=== PATIENT | male | born 1985 | race Hispanic/Latino ===

== ENCOUNTER 2022-01-19 01:17 | Emergency (ER) | payer BC ==
[~2022-01-19] VITALS: Ht 170.2 cm; Wt 114.3 kg
[2022-01-19 01:44] LABS: BASOPHILS % (AUTO) 0.6 % (0.0-5.0); EOSINOPHILS % (AUTO) 5.5 % (0.0-8.0); HEMATOCRIT 42.8 % (42-54); MEAN CORPUSCULAR HEMOGLOBIN 29.3 pg (27.0-33.0); MEAN CORPUSCULAR HGB CONC 33.9 g/dL (32.0-36.0); MEAN CORPUSCULAR VOLUME 86.5 fL (79-99); MONOCYTES % (AUTO) 7.4 % (3.0-13.0); NEUTROPHILS % (AUTO) 59.2 % (40.0-77.0); PLATELET COUNT (AUTO) 244 K/uL (130-400); RED BLOOD CELL COUNT(AUTO) 4.95 MIL/uL (4.50-6.20); RED CELL DISTRIBUTION WIDTH 13.4 % (11.0-15.5); WHITE BLOOD COUNT (AUTO) 9.3 K/uL (4.8-10.8)
[2022-01-19 01:58] LABS: CREATININE 0.8 mg/dL (0.5-1.5); POTASSIUM 3.4 mmol/L (3.5-5.1)
[2022-01-19 02:02] LABS: ALBUMIN 3.5 g/dL (3.5-5.0); TOTAL PROTEIN, SERUM 7.5 g/dL (6.0-8.3)
[2022-01-19 02:55] VITALS: BP 118/73
[2022-01-19] MEDS ORDERED: KETOROLAC 30MG VIAL (30MG/ML) IVP ONE (03:00)
== END 2022-01-19 03:30 | disposition home or self-care (01) ==
LOC: EDH 01:17
DX: R07.89 Other chest pain (principal); Z79.1 Long term (current) use of non-steroidal anti-inflammatories (NSAID)
CPT/HCPCS: 99284; 96374; 76705; 71045; 84484; 80053; 83880; 85025; 85378; 36415; 93005; J1885

== ENCOUNTER 2022-08-15 02:14 | Observation (INO) | payer BC ==
[~2022-08-15] VITALS: Ht 170.2 cm; Wt 106.1 kg
[2022-08-15 02:28] LABS: BASOPHILS % (AUTO) 0.6 % (0.0-5.0); EOSINOPHILS % (AUTO) 7.1 % (0.0-8.0); HEMATOCRIT 44.7 % (42-54); MEAN CORPUSCULAR HEMOGLOBIN 29.5 pg (27.0-33.0); MEAN CORPUSCULAR HGB CONC 33.1 g/dL (32.0-36.0); MONOCYTES % (AUTO) 7.3 % (3.0-13.0); NEUTROPHILS % (AUTO) 58.6 % (40.0-77.0); PLATELET COUNT (AUTO) 244 K/uL (130-400); RED BLOOD CELL COUNT(AUTO) 5.02 MIL/uL (4.50-6.20); RED CELL DISTRIBUTION WIDTH 13.2 % (11.0-15.5); WHITE BLOOD COUNT (AUTO) 7.9 K/uL (4.8-10.8)
[2022-08-15 02:36] LABS: CREATININE 0.8 mg/dL (0.5-1.5); POTASSIUM 3.4 mmol/L (3.5-5.1)
[2022-08-15 02:41] LABS: ALBUMIN 3.6 g/dL (3.5-5.0); TOTAL PROTEIN, SERUM 7.4 g/dL (6.0-8.3)
[2022-08-15 02:42] LABS: APPEARANCE,URINE CLEAR (CLEAR); BILIRUBIN,URINE NEGATIVE (NEGATIVE); COLOR,URINE LIGHT-YELLOW (YELLOW); GLUCOSE, URINE (UA) NEGATIVE (NEGATIVE); KETONES,URINE NEGATIVE (NEGATIVE); LEUKOCYTE ESTERASE ,URINE NEGATIVE Leu/uL (NEGATIVE); NITRATE,URINE NEGATIVE (NEGATIVE); OCCULT BLOOD,URINE NEGATIVE (NEGATIVE); PH,URINE 5.5 (5.0-8.0); PROTEIN,URINE NEGATIVE (NEGATIVE); UROBILINOGEN,URINE 0.2 mg/dL (0.2-1.0)
[2022-08-15] MEDS ORDERED: ACETAMINOPHEN 325 MG TAB PO PRN ×2 (05:00)
[2022-08-15] MEDS ORDERED: KCL 20 MEQ ERTAB PO ONE (05:00)
[2022-08-15] MEDS ORDERED: NITROGLYCERIN 0.4 MG SL TAB SL PRN (05:00)
[2022-08-15] MEDS ORDERED: ONDANSETRON 4MG INJ IV PRN (05:00)
[2022-08-15 05:02] LABS: AMPHET/METH SCREEN,URINE NEGATIVE (NEGATIVE); BARBITURATE SCREEN, URINE NEGATIVE (NEGATIVE); BENZODIAZEPINES SCREEN,URINE NEGATIVE (NEGATIVE); CANNABINOID SCREEN,URINE NEGATIVE (NEGATIVE); COCAINE SCREEN,URINE NEGATIVE (NEGATIVE); OPIATE SCREEN,URINE NEGATIVE (NEGATIVE); PHENCYCLIDINE SCREEN,URINE NEGATIVE (NEGATIVE)
[2022-08-15 05:20] LABS: HEMOGLOBIN A1C 5.2 % (4.0-6.0)
[2022-08-15] MEDS ORDERED: KCL 20 MEQ ERTAB PO PRN (05:30)
[2022-08-15] MEDS ORDERED: MAGNESIUM 2GM PREMIX 50ML 50 ML IV PRN (05:30)
[2022-08-15] MEDS ORDERED: POTASSIUM CHLORIDE 10% ELIXIR 20 MEQ/15 ML UDCUP PO PRN (05:30)
[2022-08-15] MEDS ORDERED: POTASSIUM CHLORIDE 20MEQ/100ML 100 ML IV PRN (05:30)
[2022-08-15] MEDS ORDERED: HYDROCODONE/ACETAMINOPHEN 5/325 MG TAB PO PRN (05:30)
[2022-08-15 07:42] LABS: CHOLESTEROL 181 mg/dL (<200); CREATINE KINASE, TOTAL 94 U/L (21-232); HDL CHOLESTEROL 41 mg/dL (29-71); LDL DIRECT 130 mg/dL (0-99); MYOGLOBIN 33 ng/mL (10-92); TRIGLYCERIDES 95 mg/dL (30-200)
[2022-08-15] MEDS: ASPIRIN 81 MG EC TAB PO SCH (07:46)
[2022-08-15] MEDS: FAMOTIDINE 20MG TAB PO SCH ×2 (07:46→19:52)
[2022-08-15] MEDS: ENOXAPARIN SODIUM 40 MG/0.4 ML SYRINGE SQ SCH (07:46)
[2022-08-15] MEDS: METOPROLOL TARTRATE 25 MG TAB PO SCH ×2 (07:58→19:52)
[2022-08-15 15:20] VITALS: BP 113/67
[2022-08-15 20:08] VITALS: BP 109/61
[2022-08-15] MEDS ORDERED: OMEP40CA21 PO (23:16)
[2022-08-15 23:43] VITALS: BP 121/76
[2022-08-16 04:00] VITALS: BP 105/51
[2022-08-16 05:32] LABS: HEMATOCRIT 43.9 % (42-54); MEAN CORPUSCULAR HEMOGLOBIN 29.8 pg (27.0-33.0); MEAN CORPUSCULAR VOLUME 90.3 fL (79-99); RED BLOOD CELL COUNT(AUTO) 4.86 MIL/uL (4.50-6.20); RED CELL DISTRIBUTION WIDTH 13.2 % (11.0-15.5); WHITE BLOOD COUNT (AUTO) 8.9 K/uL (4.8-10.8)
[2022-08-16 06:10] LABS: ALBUMIN 3.2 g/dL (3.5-5.0); POTASSIUM 4.2 mmol/L (3.5-5.1); TOTAL PROTEIN, SERUM 6.8 g/dL (6.0-8.3)
[2022-08-16 08:00] VITALS: BP 117/77
[2022-08-16] MEDS: FAMOTIDINE 20MG TAB PO SCH (09:43)
[2022-08-16] MEDS: ASPIRIN 81 MG EC TAB PO SCH (09:43)
[2022-08-16] MEDS: ENOXAPARIN SODIUM 40 MG/0.4 ML SYRINGE SQ SCH (09:44)
[2022-08-16] MEDS ORDERED: NAPR220C15 PO (11:35)
[2022-08-16] MEDS ORDERED: NAPR220T57 PO (11:35)
[2022-08-16 11:44] VITALS: BP 111/67
[2022-08-16] MEDS ORDERED: IOHEXOL-350 75 ML VIAL IV ONE (12:41)
== END 2022-08-16 17:20 | disposition home or self-care (01) ==
LOC: EDH 02:14 → EDHIP 04:51 → 3CH 15:11
PROVIDERS: ADMIT Internal Medicine; ATTEND Internal Medicine
DX: R07.89 Other chest pain (principal); E87.6 Hypokalemia; E66.9 Obesity, unspecified; K21.9 Gastro-esophageal reflux disease without esophagitis; E78.5 Hyperlipidemia, unspecified; Z68.38 Body mass index [BMI] 38.0-38.9, adult; Z79.899 Other long term (current) drug therapy
CPT/HCPCS: 96372 ×2; 96365; 96366; 99285; 83036; 82550 ×2; 83735 ×2; 83874 ×2; 84484 ×3; 80061; 80053 ×2; 80305; 85025; 82948; 81003; 36415 ×2; 71045; 93306; 93005 ×2; 85027; 71270; G0378 ×35; J3475; J1650 ×2; Q9967

== ENCOUNTER 2024-03-15 23:25 | Emergency (ER) | payer BC ==
[~2024-03-15] VITALS: Ht 167.6 cm; Wt 105.2 kg
[~2024-03-15 23:25] MED LIST: NAPR220C15 PO; NAPR220T57 PO; OMEP40CA21 PO
[2024-03-15 23:27] VITALS: TEMP 98.4
--- NOTE | 2024-03-15 23:30 | EKG ---
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
--- NOTE | 2024-03-15 23:31 | NUR ---
UA CUP PROVIDED
[2024-03-16 00:03] LABS: BASOPHILS # (AUTO) 0.06 K/uL (0.00-0.20); BASOPHILS % (AUTO) 0.7 % (0.0-5.0); EOSINOPHILS # (AUTO) 0.21 K/uL (0.00-0.70); EOSINOPHILS % (AUTO) 2.3 % (0.0-8.0); HEMATOCRIT 42.6 % (42-54); IMMATURE GRANULOCYTE ABSOLUTE 0.05 K/uL (0-1); LYMPHOCYTES % (AUTO) 22.1 % (21.0-51.0); MEAN CORPUSCULAR HEMOGLOBIN 29.7 pg (27.0-33.0); MEAN CORPUSCULAR HGB CONC 33.8 g/dL (32.0-36.0); MEAN CORPUSCULAR VOLUME 87.8 fL (79-99); MONOCYTES # (AUTO) 0.7 K/uL (0.1-1.0); MONOCYTES % (AUTO) 7.4 % (3.0-13.0); NEUTROPHILS # (AUTO) 6.2 K/uL (1.8-7.7); PLATELET COUNT (AUTO) 258 K/uL (130-400); RED BLOOD CELL COUNT(AUTO) 4.85 MIL/uL (4.50-6.20); RED CELL DISTRIBUTION WIDTH 12.9 % (11.0-15.5); WHITE BLOOD COUNT (AUTO) 9.2 K/uL (4.8-10.8)
[2024-03-16 00:11] LABS: APPEARANCE,URINE TURBID (CLEAR); BILIRUBIN,URINE NEGATIVE (NEGATIVE); COLOR,URINE LIGHT-YELLOW (YELLOW); CREATININE 0.9 mg/dL (0.5-1.3); GLUCOSE, URINE (UA) NEGATIVE (NEGATIVE); KETONES,URINE NEGATIVE (NEGATIVE); LEUKOCYTE ESTERASE ,URINE NEGATIVE Leu/uL (NEGATIVE); NITRATE,URINE NEGATIVE (NEGATIVE); OCCULT BLOOD,URINE NEGATIVE (NEGATIVE); POTASSIUM 3.4 mmol/L (3.5-5.1); PROTEIN,URINE 10 mg/dL (NEGATIVE); UROBILINOGEN,URINE 0.2 mg/dL (0.2-1.0)
[2024-03-16 00:12] LABS: ADD UA MICROSCOPIC YES
[2024-03-16 00:17] LABS: MUCUS,URINE RARE LPF (None Seen); RBC,URINE 0-1 /HPF (0-1); WBC,URINE 0-1 /HPF (0-1)
--- NOTE | 2024-03-16 00:18 | NUR ---
PT SITTING WITH FAMILY IN LOBBY. NO ACUTE DISTRESS NOTED. GOOD EVEN CHEST RISE AND FALL. AMBULATED IN LOBBY WITH NO ISSUES. GAIT WNL,
[2024-03-16 00:27] LABS: B-TYPE NATRIURETIC PEPTIDE < 5 pg/mL (0-100)
--- NOTE | 2024-03-16 00:48 | ERN ---
General Chief Complaint: Multiple Complaints Stated Complaint: CHEST PAIN, HIGH BP Time Seen by MD: 23:28 Source: patient History of Present Illness Initial Comments Patient is a 38-year-old male coming in to be evaluated for multiple complaints. Per patient he has been having left-sided shoulder pain a radiates to his chest region for about two weeks. Along with this he states that he has been having anxiousness. 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 Beyond with a his he has been having facial discomfort and nasal discomfort aswell Allergies: Coded Allergies: No Known Drug Allergies (Unverified Allergy, Unknown, 01/19/22) Home Meds Active Scripts Naproxen Sodium (Aleve) 220 Mg Tablet, 220 MG PO BID, #14 TAB 0 Refills Prov:YOUNG WEBB 08/16/22 Naproxen Sodium (Aleve) 220 Mg Capsule, 440 MG PO BID, #4 CAP 0 Refills Prov:YOUNG WEBB 08/16/22 Reported Medications Omeprazole (Omeprazole) 40 Mg Capsule.dr, 40 MG PO AM for 30 Days, CAP 08/15/22 Past Medical History Past Medical History: No Pertinent History Past Surgical History: Other Surgical History Other: NECK Family History Family History: DM, HTN Social History Social History: ETOH, Lives with family ROS Dictation CONSTITUTIONAL: No chills, no fever, no weakness, no diaphoresis, no malaise. HEAD/FACE: No signs of trauma. EENT: No eye pain, no blurred vision, no tearing, no double vision, no ear pain, no ear discharge, no nose pain, no nasal congestion, no throat pain, no throat swelling, no mouth pain. RESPIRATORY: No cough, no orthopnea, no SOB, no stridor, no wheezing. CARDIOVASCULAR: chest pain, no edema, no palpitations, no syncope. GASTROINTESTINAL/ABDOMINAL: No abdominal pain, no constipation, no diarrhea, no nausea, no vomiting. GENITOURINARY: No abnormal discharge, no dysuria, no frequent urination, no hematuria. No complaints of pain in the genitals. MUSCULOSKELETAL: No back pain, no gout, no joint pain, no joint swelling, muscle pain, no muscle stiffness, no neck pain. INTEGUMENTARY: No change in color, no change in hair/nails, no dryness, no lesion, no lumps, no rash. NEUROLOGICAL/PSYCH: No anxiety, not depressed, no emotional problem, no headache, no numbness, no pre-existing deficit, no history of seizures, no tremors, no weakness. HEMATOLOGIC/LYMPHATIC: Not anemic, no history of blood clots, no apparent bleeding, no bruising, glands not swollen. All Systems Negative, Except as Noted. Physical Exam Physical Exam Dictation VITAL SIGNS: Reviewed. GENERAL APPEARANCE: Alert, oriented x3, no acute distress, obese. HEAD AND FACE: Non-traumatic. EYES: PERRL, pink conjunctivas, eyelid no trauma, anterior chamber clear. EARS: Pinnas intact and no signs of trauma or erythema. Ear canals clear and no discharge. TMs no erythema. NOSE: No discharge, no bleeding. OROPHARYNX: Mouth normal, teeth no caries, tongue pink. Pharynx clear, no erythema. Tonsils no exudates, no abscesses noted. Mucous membrane moist. NECK: Supple, non-tender, no thyromegaly, no masses, no JVD, no bruits. BREAST: Deferred. CHEST: No tenderness, no crepitus, no paradoxical movement, no retractions. LUNGS: Clear, well-ventilated, symmetric, no rales, no wheezing, no rhonchi, no stridor, good breath sounds bilaterally. HEART: Regular rate, regular rhythm, no murmur, no gallops. VASCULAR: No peripheral edema. ABDOMEN: Soft, positive bowel sounds, nondistended, no guarding, nontender, no rebound, no masses no hepatomegaly, no splenomegaly, no Reed's sign, no hernias. RECTAL: Deferred. GENITAL: Deferred. NEUROLOGICAL: Normal speech, gross motor function intact, gross sensory function intact. MUSCULOSKELETAL: Neck nontender, full range of motion, back nontender, full range of motion. EXTREMITIES: Nontender, full range of motion. SKIN: Color pink, dry, no turgor, no rash, no lacerations, no abrasions, no contusions. LYMPHATICS: Deferred. Results Laboratory and Microbiology Lab and Micro Result Laboratory Tests Test 03/15/24 23:50 03/16/24 00:25 White Blood Count 9.2 K/uL (4.8-10.8) Red Blood Count 4.85 MIL/uL (4.50-6.20) Hemoglobin 14.4 g/dL (14.0-18.0) Hematocrit 42.6 % (42-54) Mean Corpuscular Volume 87.8 fL (79-99) Mean Corpuscular Hemoglobin 29.7 pg (27.0-33.0) Mean Corpuscular Hemoglobin Concent 33.8 g/dL (32.0-36.0) Red Cell Distribution Width 12.9 % (11.0-15.5) Platelet Count 258 K/uL (130-400) Mean Platelet Volume 10.9 fL (7.5-10.5) H Immature Granulocyte % (Auto) 0.5 % (0-1) Neutrophils (%) (Auto) 67.0 % (40.0-77.0) Lymphocytes (%) (Auto) 22.1 % (21.0-51.0) Monocytes (%) (Auto) 7.4 % (3.0-13.0) Eosinophils (%) (Auto) 2.3 % (0.0-8.0) Basophils (%) (Auto) 0.7 % (0.0-5.0) Neutrophils # (Auto) 6.2 K/uL (1.8-7.7) Lymphocytes # (Auto) 2.0 K/uL (1.0-4.8) Monocytes # (Auto) 0.7 K/uL (0.1-1.0) Eosinophils # (Auto) 0.21 K/uL (0.00-0.70) Basophils # (Auto) 0.06 K/uL (0.00-0.20) Absolute Immature Granulocyte (auto 0.05 K/uL (0-1) Nucleated Red Blood Cells 0.0 % (0.0-0.19) Urine Color LIGHT-YELLOW (YELLOW) Urine Appearance TURBID (CLEAR) Urine pH 8.0 (5.0-8.0) Urine Specific [place] 1.018 (1.001-1.031) Urine Protein 10 mg/dL (NEGATIVE) H Urine Glucose (UA) NEGATIVE mg/dL (NEGATIVE) Urine Ketones NEGATIVE mg/dL (NEGATIVE) Urine Occult Blood NEGATIVE (NEGATIVE) Urine Nitrate NEGATIVE (NEGATIVE) Urine Bilirubin NEGATIVE mg/dL (NEGATIVE) Urine Urobilinogen 0.2 mg/dL (0.2-1.0) Urine Leukocyte Esterase NEGATIVE [place]/uL Urine RBC 0-1 /HPF (0-1) Urine WBC 0-1 /HPF (0-1) Urine Amorphous Crystals (Auto) RARE /LPF (None Seen) Urine Bacteria None /HPF (None Seen) Sodium Level 136 mmol/L (136-145) Potassium Level 3.4 mmol/L (3.5-5.1) L Chloride Level 98 mmol/L (101-111) L Carbon Dioxide Level 31 mmol/L (21-32) Blood Urea Nitrogen 9 mg/dL (7-18) Creatinine 0.9 mg/dL (0.5-1.3) Glomerular Filtration Rate Calc 111 mL/min (>90) Random Glucose 119 mg/dL (70-105) H Total Calcium 8.7 mg/dL (8.5-10.1) Total Creatine Kinase 341 U/L (21-232) #H Troponin I High Sensitivity < 4 ng/L (4-75) L B-Type Natriuretic Peptide < 5 pg/mL (0-100) Troponin I < 0.05 ng/mL (0.00-0.05) Labs Reviewed?: Yes EKG/XRAY/US/CT/MRI EKG Comment 03/15/2024 time 11:27 p.m. Ventricular rate 76 Sinus rhythm [place] [address] wave elevation or depression X-RAY Comment CHEST X-RAY-[facility] MDM: Differential diagnosis: Sinusitis, anxiety, history of Santos's palsy PATIENT IS A 38-YEAR-OLD MALE COMING IN TO BE EVALUATED FOR MULTIPLE COMPLAINTS. 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 LABORATORY WORKUP NEGATIVE FOR ACUTE FINDINGS ON PHYSICAL EXAM PATIENT DID PRESENT WITH LEFT TYMPANIC MEMBRANE ERYTHEMA NASAL TURBINATE SWELLING RIGHT FACIAL DISCOMFORT RIGHT CERUMEN IMPACTION. PATIENT WAS DISCHARGED WITH A DIAGNOSIS OF SINUSITIS WITH RIGHT CERUMEN IMPACTION WELL ANXIETY. ED Course Orders Procedure Category Date Status Time Vital Signs Per CPOE 03/15/24 Transmitted Routine 23:27 B-Type Natriuretic LAB 03/15/24 Complete Peptide 23:27 Chest 1vw RAD 03/15/24 Taken 23:27 12 Lead Ekg Tracing- EKG 03/15/24 Complete Technical 23:27 Oxygen By Nc/Pulse Ox CPOE 03/15/24 Transmitted 23:27 Maintain Iv CPOE 03/15/24 Transmitted 23:27 Iv Insertion CPOE 03/15/24 Transmitted 23:27 Cardiac Monitoring CPOE 03/15/24 Transmitted 23:27 Pulse Oximetry With CPOE 03/15/24 Transmitted Vs And Prn 23:27 Cbc With Differential LAB 03/15/24 Complete 23:27 Activity: Br W/Brp CPOE 03/15/24 Transmitted With Assist 23:27 Creatine Kinase, Total LAB 03/15/24 Complete 23:27 Troponin I High LAB 03/15/24 Complete Sensitivity 23:27 Urinalysis Profile LAB 03/15/24 Complete 23:27 Troponin Poc Order LAB 03/15/24 Complete Only 23:27 Bedside Troponin-I LAB.ER 03/15/24 In Process (Poc) 23:27 Basic Metabolic Panel LAB 03/15/24 Complete 23:27 0.9%Nacl 1000ml (Ns PHA 03/16/24 Complete 1000ml) 01:00 Current Medications Medications (Trade) Dose Ordered Sig/Cielo Route PRN Reason Start Time Stop Time Status Last Admin Dose Admin Sodium Chloride 1,000 ml @ 0 mls/hr ONCE ONCE IV 03/16/24 01:00 03/16/24 01:01 DC 03/16/24 02:18 Vital Signs Date Time Temp Pulse Resp B/P (MAP) Pulse Ox O2 Delivery O2 Flow Rate FiO2 03/16/24 02:06 69 21 131/81 98 Room Air* 0 21 03/15/24 23:27 98.4 80 16 157/106 98 Room Air DX & DISP Disposition: Discharge Departure Impression: Primary Impression: Sinusitis Additional Impressions: Cerumen impaction, Anxiety Condition: Stable Scripts Isopropyl Alcohol in Glycerin (Debrox Swimmer's Ear Drop) 95 %-5 % Drops 30 ML OT BID for 7 Days, #4 DROP Prov: ROC GODWIN MD 03/16/24 Loratadine (Loratadine) 10 Mg Tablet 1 TAB PO DAILY for allergy symptoms for 30 Days, #30 TAB 0 Refills Prov: ROC GODWIN MD 03/16/24 Fluticasone Propionate (Flonase Nasal [place]) 50 Mcg/Actuation [place] 2 SPRAY NS DAILY, #16 GM 0 Refills Prov: ROC GODWIN MD 03/16/24 Amoxicillin/Potassium Clav (Amox Tr-K Clv 875-125 mg Tab) 875 Mg-125 Mg Tablet 1 TAB PO BID for 10 Days, #20 TAB 0 Refills Prov: ROC GODWIN MD 03/16/24 Additional Instructions: FOLLOW-UP WITH PRIMARY CARE PROVIDER IN 1 TO 2 DAYS. TAKE MEDICATIONS DIRE CTED HERE IN THE EMERGENCY ROOM. OKAY TO CONTINUE HOME MEDICATIONS UNLESS OTHERWISE DISCUSSED DURING YOUR VISIT IN THE EMERGENCY ROOM TODAY. RETURN TO YOUR NEAREST EMERGENCY ROOM IF SYMPTOMS WORSEN OR IF THERE IS NO IMPROVEMENT. CALL 911 IF YOU NEED IMMEDIATE ASSISTANCE. TAKE TYLENOL [id number] NEEDED AND IF NO CONTRAINDICATIONS ARE PRESENT. INCREASE ORAL HYDRATION. A WOUND CULTURE OR URINE CULTURE WAS ORDERED HERE IN THE EMERGENCY ROOM DEPARTMENT PLEASE FOLLOW-UP WITH PRIMARY CARE PROVIDER AND ADVISE THEM TO GET REPEAT PORTS FROM OUR FACILITY. IF YOU HAD ANY JAMAAL WRAP/SPLINTS THAT WERE APPLIED HERE, PLEASE DO NOT REMOVE THEM UNTIL YOU SEE YOUR PRIMARY CARE OR SPECIALTY. REFERRALS: Referrals: [facility] (PCP) KAIDEN DELEON MD Time of Disposition: 02:36 ROC GODWIN MD Mar 16, 2024 00:48
--- NOTE | 2024-03-16 02:05 | NUR ---
PT CARE ASSUMED AT THIS TIME
[2024-03-16] MEDS: 0.9%NACL 1000ML 1,000 ML IV ONE (02:18)
[2024-03-16] MEDS ORDERED: FLUT16H NS (02:39)
[2024-03-16] MEDS ORDERED: LORA10TA7 PO (02:39)
[2024-03-16] MEDS ORDERED: ISOP30DR11 OT (02:39)
[2024-03-16] MEDS ORDERED: AMOX1TAB16 PO (02:39)
[2024-03-16 03:50] VITALS: BP 127/87; PULSE 66; RESP 19; O2SAT 96
--- NOTE | 2024-03-16 08:12 | HMCIMG ---
PORTABLE CHEST RADIOGRAPH INDICATION: CHEST PAIN COMPARISON: None FINDINGS: Heart size is normal. The pulmonary vascularity and radha appear normal. No abnormal pulmonary parenchymal opacity or consolidation identified. No significant pleural effusion noted. No pneumothorax detected. IMPRESSION: No radiographic evidence for any acute cardiopulmonary process.
== END 2024-03-16 04:01 | disposition home or self-care (01) ==
LOC: EDH 23:25
DX: J32.9 Chronic sinusitis, unspecified (principal); H61.21 Impacted cerumen, right ear; F41.9 Anxiety disorder, unspecified; Z79.899 Other long term (current) drug therapy
CPT/HCPCS: 99284; 71045; 82550; 84484 ×2; 80048; 83880; 85025; 81001; 36415 ×2; 93005; J7030